=== PATIENT | male | born 1985 | race Two or more races ===

== ENCOUNTER 2022-10-31 22:18 | Emergency (ER) | payer OTHER ==
[~2022-10-31] VITALS: Ht 165.1 cm; Wt 131.0 kg
[2022-10-31 22:18] VITALS: BP 156/96
[2022-10-31 23:26] LABS: Basophils # (auto) 0.1 10 ^3/uL (0-0.2); Basophils % (auto) 0.7 % (0.0-2.0); Eosinophils # (auto) 0.2 10 ^3/uL (0-0.8); Hematocrit 47.2 % (41.0-53.0); Hemoglobin 16.2 g/dL (13.5-17.5); Lymphocytes # (auto) 3.4 10 ^3/uL (0.4-5.4); Lymphocytes % (auto) 30.7 % (10.0-50.0); Mean Corpuscular Hemoglobin 29.6 pg (28.0-32.0); Mean Corpuscular Hgb Conc. 34.3 g/dL (32.0-36.0); Mean Corpuscular Volume 86.5 fL (80.0-100.0); Monocytes # (auto) 1.1 10 ^3/uL (0-1.3); Monocytes % (auto) 9.6 % (0.0-12.0); Neutrophils # (auto) 6.4 10 ^3/uL (1.6-8.6); Nucleated Red Blood Cells % 1.1 %; Red Blood Cells 5.46 10^6/uL (4.5-5.90); Red Cell Distribution Width 14.5 % (11.8-14.3); White Blood Cell 11.2 10^3/uL (4.4-10.8)
[2022-10-31 23:49] LABS: Albumin 3.3 g/dL (3.4-5.0); Calcium 8.7 mg/dL (8.5-10.1); Potassium 3.9 mmol/L (3.5-5.1)
[2022-10-31 23:51] LABS: Bilirubin, Total 0.3 mg/dL (0.2-1.0); Total Protein 7.8 g/dL (6.4-8.2)
[2022-11-01 00:06] LABS: Urine Bacteria NONE SEEN /hpf (None Seen); Urine Blood 1+ /uL (Negative); Urine Specific Gravity 1.011 (1.001-1.035); Urine WBC 2 /hpf (0 - 3)
[2022-11-01] MEDS ORDERED: CEPH500C PO (13:31)
== END 2022-11-01 22:30 | disposition left against medical advice (07) ==
LOC: ER 22:22
DX: R10.33 Periumbilical pain (principal); Z98.890 Other specified postprocedural states
CPT/HCPCS: 36415; 74176; 80053; 81001; 83690; 85025

== ENCOUNTER 2022-11-01 11:47 | Emergency (ER) | payer OTHER ==
[~2022-11-01] VITALS: Ht 165.1 cm; Wt 132.9 kg
[2022-11-01 12:33] VITALS: BP 147/95
[2022-11-01] MEDS ORDERED: CEPH500C PO (13:31)
== END 2022-11-01 13:50 | disposition home or self-care (01) ==
LOC: ER 11:47
DX: K76.0 Fatty (change of) liver, not elsewhere classified (principal); R16.1 Splenomegaly, not elsewhere classified; N20.0 Calculus of kidney; K42.9 Umbilical hernia without obstruction or gangrene

== ENCOUNTER 2025-01-22 07:14 | Day surgery (SDC) | payer MEDICAID ==
[2025-01-21 11:07] LABS: Hematocrit 43.8 % (41.0-53.0); Hemoglobin 15.5 g/dL (13.5-17.5); Mean Corpuscular Hemoglobin 30.0 pg (28.0-32.0); Mean Corpuscular Volume 84.6 fL (80.0-100.0); Nucleated Red Blood Cells % 0.1 %
[2025-01-21 11:14] LABS: INR 0.99 (0.9-1.15); Partial Thromboplastin Time 31.3 SEC (24.5-34.5); Prothrombin Time 10.5 sec (9.3-11.8)
[2025-01-21 11:20] LABS: Urine Protein, UAD Negative (Negative)
[2025-01-21 11:33] LABS: Alanine Aminotransferase 31 U/L (7-40); Albumin 4.4 g/dL (3.2-4.8); Alkaline Phosphatase 98 U/L (46-116); Anion Gap 7 (5-15); BUN/Creatinine Ratio 11.5 (10.0-20.0); Calcium 9.3 mg/dL (8.7-10.4); Carbon Dioxide 28 mmol/L (20-31); Chloride 106 mmol/L (98-107); Glucose 81 mg/dL (74-106); Potassium 4.6 mmol/L (3.5-5.1); Sodium 141 mmol/L (136-145); Total Protein 7.6 g/dL (5.7-8.2)
[2025-01-21 11:34] LABS: Bilirubin, Total 0.5 mg/dL (0.2-1.0)
[2025-01-21 11:37] LABS: Blood Urea Nitrogen 9 mg/dL (9-23)
[~2025-01-22] VITALS: Ht 167.6 cm; Wt 103.0 kg
[2025-01-22] MEDS ORDERED: HYDROmorphone HCL 2 MG/ML VL/or syr IV PRN (07:30)
[2025-01-22] MEDS ORDERED: MORPHINE SULFATE 4 MG/ML SYR/VIAL IV PRN (07:30)
[2025-01-22] MEDS ORDERED: KETOROLAC TROMETH 30 MG/ML 1ML VIAL IV ONE (07:30)
[2025-01-22] MEDS ORDERED: MORPHINE SULFATE INJ 2 MG/ml SYRG IV PRN (07:30)
[2025-01-22] MEDS ORDERED: METOCLOPRAMIDE HCL 5MG/ml INJ 2ml VIAL IV PRN (07:30)
[2025-01-22] MEDS ORDERED: MIDAZOLAM HCL 2MG/2ML 2ml VIAL (1mg/ml) ONE (07:36)
[2025-01-22] MEDS ORDERED: KETAMINE 50mg/ML 10ml Vial 10 ML ONE (07:36)
[2025-01-22] MEDS ORDERED: fentaNYL CITRATE 100 MCG/2 ML VL ONE (07:36)
[2025-01-22] MEDS ORDERED: HYDROmorphone HCL 2 MG/ML VL/or syr ONE (07:36)
[2025-01-22] MEDS ORDERED: ONDANSETRON HCL 4 MG/2 ML VIAL ONE (07:37)
[2025-01-22] MEDS ORDERED: PROPOFOL 10 MG/ML 20 ML IV ONE (07:37)
[2025-01-22] MEDS ORDERED: SODIUM CHLORIDE LOCK 10 ML ONE (07:37)
[2025-01-22] MEDS ORDERED: LIDOCAINE 1% INJ PF 5ML AMP ONE (07:37)
[2025-01-22] MEDS ORDERED: LIDOCAINE HCL 2% TOP JELLY 5ML TOP ONE (07:37)
[2025-01-22] MEDS ORDERED: ROCURONIUM 10MG/ML 10ML VIAL IV ONE (07:37)
[2025-01-22] MEDS ORDERED: POVIDONE IODINE 10 % TOPICAL OINT 30GM TOP ONE (07:38)
[2025-01-22] MEDS: ceFAZolin 2 GM/D5W50ml 50 ML IV ONE (08:24)
[2025-01-22] MEDS: BUPIVACAINE 0.25% INJ 50ML VIAL ONE (08:46)
[2025-01-22] MEDS: LIDOCAINE W/ EPINEPHRINE 1% 20ML VIAL ONE (08:46)
[2025-01-22 09:22] VITALS: PULSE 85; RESP 17; TEMP 97.4; O2SAT 93
--- NOTE | 2025-01-22 09:52 | DVHOP ---
DATE OF SURGERY: 01/22/2025 PREOPERATIVE DIAGNOSIS: Umbilical hernia. POSTOPERATIVE DIAGNOSIS: Umbilical hernia. SURGEON: Teofilo Adam MD ANESTHESIA: General endotracheal. ANESTHESIOLOGIST: Dr. Araujo. PROCEDURE: Repair of umbilical hernia. DESCRIPTION OF PROCEDURE: Under general anesthesia with the patient's skin prepped and draped, the patient's incision was made above the umbilicus where there was a visible palpable bulge, which was fist size. The incision was deepened with electrocautery. There was incarcerated omentum within the hernia. The hernia defect measured approximately 3 cm. It was used for reduction of the omentum, which was reduced in its entirety. The hernia sac was excised and submitted for histopathologic examination. Subsequently, the edges of the hernia defect were approximated using nonabsorbable sutures. Subcutaneous tissues and skin were approximated with Monocryl sutures, Dermabond glue, and Steri-Strips. The patient remained stable throughout the procedure and left the operating room following an accurate needle and sponge counts. His girlfriend, Leanna, was thoroughly informed at [phone]. MD TAN Fay/RUTHANN TID: [id number] RECEIPT: [id number]
[2025-01-22] MEDS: HYDROmorphone HCL 2 MG/ML VL/or syr IV PRN (09:53)
[2025-01-22 11:05] VITALS: BP 138/76; PULSE 67; RESP 16; O2SAT 95
== END 2025-01-22 11:15 | disposition home or self-care (01) ==
LOC: SUR 07:14
PROVIDERS: ATTEND Surgery
DX: K42.0 Umbilical hernia with obstruction, without gangrene (principal); E66.9 Obesity, unspecified; Z68.36 Body mass index [BMI] 36.0-36.9, adult
CPT/HCPCS: 36415; 49594; 80053; 81001; 85025; 85610; 85730; 86850; 86900; 86901; 88302; J0690; J1100; J1171; J2250; J2405; J2704; J3010; J3490